=== PATIENT | female | born 1930 | race Caucasian/White ===

== ENCOUNTER 2018-01-26 00:06 | Inpatient (IN) | payer OTHER ==
[~2018-01-26] VITALS: Ht 160 cm; Wt 50.9 kg
[2018-01-26] VITALS (8 sets, daily range): BP systolic 100–182; BP diastolic 70–87
[~2018-01-26 00:06] MED LIST: ASPIRIN325 MG PO; DILANTIN100 MG PO; FLECAINIDE ACE100 MG PO; METOPROLOL SUCC50 MG PO
[2018-01-26] MEDS ORDERED: METAMUCIL POWD174 GM PO (00:21)
[2018-01-26] MEDS ORDERED: MILK OF MA2400 MG/10 PO (00:23)
[2018-01-26] MEDS ORDERED: NITROGLYCERIN0.4 MG SL (00:24)
[2018-01-26] MEDS ORDERED: BENICAR20 MG PO (00:27)
[2018-01-26] MEDS ORDERED: OCUVITE TABLET1 EAC1 PO (00:27)
[2018-01-26] MEDS ORDERED: MAPAP325 MG (00:27)
[2018-01-26 00:28] LABS: BASOPHILS % 0.3 % (0.0-1.0); EOSINOPHILS # (AUTO) 0.4 (0.0-0.4); HEMATOCRIT 31.7 % (34.2-44.1); HEMOGLOBIN 11.1 g/dL (12.0-16.0); LYMPHOCYTES % 17.5 % (18.0-39.1); MEAN CORPUSCULAR HEMOGLOBIN 33.1 pg (28-32); MEAN CORPUSCULAR VOLUME 94.6 fL (81-99); MONOCYTES # (AUTO) 0.8 (0.2-0.8); MONOCYTES % 12.7 % (4.4-11.3); NEUTROPHILS # (AUTO) 3.7 (2.1-6.9); NEUTROPHILS % 62.2 % (38.7-80.0); PLATELET COUNT 203 x10e3/uL (140-360); RED BLOOD COUNT 3.35 x10e6/uL (3.6-5.1); RED CELL DISTRIBUTION WIDTH 12.3 % (11.7-14.4)
[2018-01-26] MEDS ORDERED: STRESS-C WITH1 EAC1 (00:29)
[2018-01-26] MEDS ORDERED: SODIUM CHLORIDE 0.9% 500ML 500 ML IV ONE (00:30)
[2018-01-26] MEDS ORDERED: METOPROLOL TARTRATE INJ 1 MG/ML VIAL IV ONE ×2 (00:30→01:00)
[2018-01-26 00:43] LABS: INR 1.13; PARTIAL THROMBOPLASTIN TIME 26.2 seconds (23.8-35.5); PROTHROMBIN TIME 13.6 seconds (11.9-14.5)
[2018-01-26 00:52] LABS: ALANINE AMINOTRANSFERASE 23 IU/L (0-55); ALBUMIN 3.6 g/dL (3.5-5.0); ALBUMIN/GLOBULIN RATIO 0.8 (0.8-2.0); ALKALINE PHOSPHATASE 151 IU/L (40-150); BLOOD UREA NITROGEN 8 mg/dL (7-26); BUN/CREATININE RATIO 11 (6-25); CALCIUM 8.8 mg/dL (8.4-10.2); CARBON DIOXIDE 21 mmol/L (22-29); CHLORIDE 92 mmol/L (98-107); CREATINE KINASE 39 IU/L (29-168); EST GLOMERULAR FILTRATION RATE > 60 ML/MIN (60-); GLUCOSE 115 mg/dL (74-118); SODIUM 124 mmol/L (136-145)
--- NOTE | 2018-01-26 01:33 | Diagnostic Imaging Report ---
EXAM: CHEST SINGLE (PORTABLE), AP 1 view INDICATION: Not provided COMPARISON: None FINDINGS: LINES/TUBES: None LUNGS: No consolidations or edema. Emphysematous changes with biapical scarring. PLEURA: No effusions or pneumothorax. HEART AND MEDIASTINUM: The heart is at the upper limits of normal in size. Prominence of the right isabel is likely secondary to enlarged pulmonary artery. BONES AND SOFT TISSUES: No acute findings. IMPRESSION: Emphysematous changes without consolidation. Signed by: Dr. Mayuri Sarkar M.D. on 01/26/2018 1:29 AM
[2018-01-26] MEDS ORDERED: ONDANSETRON HCL INJ 2 MG/ML VIAL IV PRN (02:00)
[2018-01-26] MEDS ORDERED: NITROGLYCERIN 0.4 MG SUBL SL PRN (02:00)
[2018-01-26] MEDS: SODIUM CHLORIDE 0.9% 1000ML 1,000 ML IV SCH ×2 (02:09→15:05)
[2018-01-26] MEDS: METOPROLOL TARTRATE INJ 1 MG/ML VIAL IV PRN (05:00)
[2018-01-26 06:32] LABS: CLARITY,URINE HAZY (CLEAR); COLOR,URINE YELLOW (YELLOW); KETONES,URINE NEGATIVE (NEGATIVE); PROTEIN,URINE DIPSTICK NEGATIVE (NEGATIVE)
[2018-01-26 06:33] LABS: BILIRUBIN,URINE NEGATIVE (NEGATIVE); LEUKOCYTE ESTERASE ,URINE 1+ (NEGATIVE); NITRITE,URINE POSITIVE (NEGATIVE); URINE UROBILINOGEN 0.2 mg/dL (0.2 - 1)
[2018-01-26 06:38] LABS: BACTERIA,URINE MANY /HPF; RBC,URINE 0-5 /HPF (0-5); WBC,URINE (MAN) 21-50 /HPF (0-5)
[2018-01-26 06:39] LABS: EPITHELIAL CELLS,URINE RARE /LPF; TRANSITIONAL EPI CELLS,URINE RARE
[2018-01-26] MEDS ORDERED: FAMOTIDINE 20 MG/2 ML VIAL IV SCH (09:00)
[2018-01-26] MEDS: OLMESARTAN 20 MG TAB PO SCH ×2 (09:10→16:55)
[2018-01-26] MEDS: PHENYTOIN SODIUM EXT REL 100 MG CAP PO SCH ×3 (09:10→20:25)
[2018-01-26] MEDS: PSYLLIUM 6GM PACKET PO SCH (09:10)
[2018-01-26] MEDS: ASPIRIN 81 MG CHEW TAB PO SCH (09:10)
[2018-01-26] MEDS: FLECAINIDE ACETATE 100 MG TAB PO SCH ×2 (09:11→20:26)
[2018-01-26] MEDS: OCUVITE PRESERVISION TABLET PO SCH (09:11)
[2018-01-26] MEDS: METOPROLOL SUCCINATE 50 MG TAB XL PO SCH (09:11)
[2018-01-26] MEDS: ENOXAPARIN SODIUM INJ 100 MG/ML SYR SC SCH ×2 (09:14→20:26)
[2018-01-26] MEDS ORDERED: LEVALBUTEROL HCL SOLN NEBU 0.63 MG/3 ML NEB INH PRN (09:30)
[2018-01-26] MEDS: IPRATROPIUM BROMIDE 0.02% 2.5 ML NEB NEB SCH ×3 (09:30→19:00)
[2018-01-26] MEDS ORDERED: BENZONATATE 100 MG CAP PO PRN (09:30)
--- NOTE | 2018-01-26 09:50 | Consultation ---
DATE OF CONSULTATION: January 26, 2018 REASON FOR CONSULTATION: AFib and chest pain. HPI: This is a pleasant 87-year-old female that presented with chest pain. According to the patient, she started having pressure that is located at the center of her chest on a scale of 5 out of 10 with no radiation. She stated it has been going on for the last week, that she decided to come into the emergency room for evaluation. She was found to be in AFib with RVR and she was admitted for further evaluation after getting Cardizem times 2. She has a history of chronic Afib, was taken off anticoagulation by PCP due to multiple falls and bleeding. She denies any diaphoresis, any headache, any nausea or vomiting. BNP showed 295. Chest x-ray showed emphysema changes without consolidation. PAST MEDICAL HISTORY: Hypertension, osteoporosis, fall, AFib, and seizure disorder. PAST SURGICAL HISTORY: Left wrist surgery, hysterectomy, status post hip surgery. FAMILY HISTORY: Noncontributory. SOCIAL HISTORY: No smoking. No drinking. She lives at home with her . MEDICATIONS: See med list. ALLERGIES: SHE IS ALLERGIC TO SHELLFISH, PENICILLIN, MEPERIDINE, AND IRON. REVIEW OF SYSTEMS: Negative except as mentioned above. PHYSICAL EXAMINATION VITALS: Temperature 97, heart rate 92, blood pressure 127/73, respirations 18, and oxygen saturation 98% on 2 L nasal cannula. GENERAL: She is awake, alert, and oriented times 3. HEENT: Mucous membrane moist. NECK: Supple. Lungs bilaterally clear to auscultation. CARDIOVASCULAR: Irregularly irregular. ABDOMEN: Soft. NEUROLOGIC: Intact. EXTREMITIES: With no edema. LABS: Sodium 124, potassium 4.0, chloride 92, CO2 of 21, BUN 8, creatinine 0.70, and glucose 115. White blood cell 5.89, hemoglobin 11.1, hematocrit 31.7, and platelets 203,000. PT 13.6, PTT 26.2, and INR 1.13. IMPRESSIONS 1. Atrial fibrillation with rapid ventricular response. 2. Chest pain. 3. Hyponatremia. 4. Hypertension. 5. History of seizure. ASSESSMENT AND PLAN: Will go ahead and get serial cardiac enzymes. She has multiple echos in the past. Will go ahead and get report from [facility]. Possible Lexiscan Myoview when stable or as an outpatient. She was taken off anticoagulation in the past due to history of fall and bleeding. Will go ahead and continue Lovenox for now. Her heart rate is controlled and fluctuates in the 90s to 100s. Further cardiac workup pending clinical course. Thank you for this consultation. Dictated by Amarjit Benavidez NP Job#: [id number] CF
[2018-01-26] MEDS ORDERED: AZITHROMYCIN 250 MG TAB PO ONE (10:00)
[2018-01-26] MEDS: CEFTRIAXONE SOD 1 GM VIAL IV SCH ×2 (10:40→20:26)
[2018-01-26] MEDS: LORATADINE 10 MG TAB PO SCH (10:40)
[2018-01-26] MEDS: METHYLPREDNISOLONE SOD SUCC 40 MG/ML VIAL IV SCH ×3 (10:41→20:26)
[2018-01-26 14:05] LABS: CREATINE KINASE MB 2.2 ng/mL (0-5.0)
[2018-01-26] MEDS: BENZONATATE 100 MG CAP PO SCH ×2 (15:00→20:26)
--- NOTE | 2018-01-26 15:17 | Diagnostic Imaging Report ---
PROCEDURE: CT CHEST WITHOUT CONTRAST CT scan of the chest WITHOUT intravenous contrast, using standard protocol. TECHNIQUE: The chest was scanned utilizing a multidetector helical scanner from the apex to the level of the adrenal glands. No IV contrast was administered per physician's request. Coronal and sagittal multiplanar reformations were obtained. COMPARISON: [facility], DX, CHEST SINGLE (PORTABLE), 01/26/2018, 0:47. INDICATIONS: SHORT OF BREATH FINDINGS: Lines/tubes: None. Lungs and Airways: Mild apical pleural parenchymal scarring. Linear opacities in bilateral posteromedial lower lobes likely represents subsegmental atelectasis or scarring. Mild central bronchial wall thickening in the upper and lower lobes. No pulmonary nodules, masses, or consolidation. Airways are clear, without endobronchial lesions. Pleura: No effusion, or pneumothorax. Heart and mediastinum: Multiple hypodense lesions in bilateral thyroid lobes, with the largest on the right measuring approximately 1.0 cm and the largest on the left measuring approximately 1.3 cm. Some of these bilateral hypodense lesions are partly calcified. Mild cardiomegaly. Atherosclerotic calcification of the aortic valves, mitral annulus and thoracic aorta. Aorta is non-aneurysmal. The main pulmonary artery is enlarged, measuring approximately 3.4 cm. Lymph nodes: No mediastinal or axillary adenopathy. Calcified right lower paratracheal and right hilar nodes. Abdomen: Limited views of the upper abdomen show no abnormality within the visualized liver, pancreas, or kidneys. Right adrenal gland is unremarkable. Left adrenal gland is thickened, however, no discrete focal lesion is identified. Multiple calcified splenic granulomas. 0.6 cm round nodular density anterior to the descending colon may likely represents a splenule (series 2 image 121). Tortuous calcified splenic artery. 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 Bones: No acute bony abnormalities. No aggressive lytic lesions. Degenerative disc changes in the thoracic spine. IMPRESSION: 1. No pulmonary nodules, masses, or consolidation. Bilateral lower lobe subsegmental atelectasis or scarring. 2. Mild central bronchial wall thickening in the upper and lower lobes, which may reflect sequela of chronic bronchitis. 3. Mild cardiomegaly. 4. Enlarged main pulmonary artery, suggesting pulmonary hypertension. 5. Prior granulomatous disease, manifested by calcified mediastinal and hilar nodes and splenic granulomas. 6. 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 Fran Jarquin M.D. Dictated by: Fran Jarquin M.D. on 01/26/2018 at 15:23 Electronically approved by: Fran Jarquin M.D. on 01/26/2018 at 15:23
[2018-01-26 21:08] LABS: CREATINE KINASE MB 1.9 ng/mL (0-5.0)
[2018-01-27] VITALS (8 sets, daily range): BP systolic 123–140; BP diastolic 69–87
[2018-01-27] MEDS: IPRATROPIUM BROMIDE 0.02% 2.5 ML NEB NEB SCH ×4 (01:00→19:00)
[2018-01-27 04:54] LABS: BASOPHILS % 0.3 % (0.0-1.0); EOSINOPHILS % 0.5 % (0.0-6.0); HEMATOCRIT 30.5 % (34.2-44.1); HEMOGLOBIN 10.5 g/dL (12.0-16.0); LYMPHOCYTES % 16.8 % (18.0-39.1); MEAN CORPUSCULAR HEMOGLOBIN 33.2 pg (28-32); MEAN CORPUSCULAR HGB CONC 34.4 g/dL (31-35); MEAN CORPUSCULAR VOLUME 96.5 fL (81-99); MONOCYTES # (AUTO) 0.5 (0.2-0.8); NEUTROPHILS # (AUTO) 4.5 (2.1-6.9); NEUTROPHILS % 73.9 % (38.7-80.0); PLATELET COUNT 215 x10e3/uL (140-360); RED BLOOD COUNT 3.16 x10e6/uL (3.6-5.1); RED CELL DISTRIBUTION WIDTH 12.4 % (11.7-14.4)
[2018-01-27] MEDS: SODIUM CHLORIDE 0.9% 1000ML 1,000 ML IV SCH (05:04)
[2018-01-27] MEDS: METHYLPREDNISOLONE SOD SUCC 40 MG/ML VIAL IV SCH ×2 (05:04→20:25)
[2018-01-27 05:12] LABS: ALANINE AMINOTRANSFERASE 21 IU/L (0-55); ALBUMIN 2.7 g/dL (3.5-5.0); ALBUMIN/GLOBULIN RATIO 0.7 (0.8-2.0); ALKALINE PHOSPHATASE 108 IU/L (40-150); ANION GAP 11.4 mmol/L (8-16); BLOOD UREA NITROGEN 10 mg/dL (7-26); BUN/CREATININE RATIO 15 (6-25); CALCIUM 8.3 mg/dL (8.4-10.2); CARBON DIOXIDE 22 mmol/L (22-29); CHLORIDE 102 mmol/L (98-107); CHOL/HDL RATIO 2.1 (3.0-3.6); CHOLESTEROL 174 MD/DL (0-199); CREATININE, SERUM 0.65 mg/dL (0.57-1.11); EST GLOMERULAR FILTRATION RATE > 60 ML/MIN (60-); GLUCOSE 108 mg/dL (74-118); HDL CHOLESTEROL 81 MG/DL (40-60); LDL CHOLESTEROL 80 MG/DL (60-130); POTASSIUM 4.4 mmol/L (3.5-5.1); SODIUM 131 mmol/L (136-145); TRIGLYCERIDES 67 MG/DL (0-149)
[2018-01-27] MEDS: BENZONATATE 100 MG CAP PO SCH ×3 (09:53→20:26)
[2018-01-27] MEDS: ENOXAPARIN SODIUM INJ 100 MG/ML SYR SC SCH ×2 (09:53→20:28)
[2018-01-27] MEDS: OCUVITE PRESERVISION TABLET PO SCH (09:53)
[2018-01-27] MEDS: OLMESARTAN 20 MG TAB PO SCH ×2 (09:53→17:08)
[2018-01-27] MEDS: AZITHROMYCIN 250 MG TAB PO SCH (09:53)
[2018-01-27] MEDS: LORATADINE 10 MG TAB PO SCH (09:53)
[2018-01-27] MEDS: PSYLLIUM 6GM PACKET PO SCH (09:53)
[2018-01-27] MEDS: METOPROLOL SUCCINATE 50 MG TAB XL PO SCH ×2 (09:53→17:09)
[2018-01-27] MEDS: FLECAINIDE ACETATE 100 MG TAB PO SCH ×2 (09:53→20:26)
[2018-01-27] MEDS: ASPIRIN 81 MG CHEW TAB PO SCH (09:53)
[2018-01-27] MEDS: PHENYTOIN SODIUM EXT REL 100 MG CAP PO SCH ×3 (09:53→20:26)
[2018-01-27] MEDS: CEFTRIAXONE SOD 1 GM VIAL IV SCH ×2 (09:54→20:32)
--- NOTE | 2018-01-27 15:43 | History and Physical ---
CHIEF COMPLAINT: Cough, congestion and elevated heart rate. HISTORY OF PRESENT ILLNESS: An 87-year-old female with known history of AFib, hypertension, seizure disorder comes into the ED with complaints of chest pain and underlying cough and congestion. Patient was admitted for further evaluation. In relation to her AFib, cardiology was consulted. She reports that her chest pain was in the center of her chest, 5 out of 10 with no radiation. She stated that it lasted for about the last one week. She had come to the ER for further evaluation. She was also found to be in AFib with RVR for which she came to the ER and was given Cardizem. In relation to her cough and congestion, this has been ongoing for several days now. No fever at home. No congestion. No abdominal pain or any other complaints. Creatinine to evaluate at bedside on the medical floor and currently doing well with no other issues. REVIEW OF SYSTEMS: Pertinent positive: Cough. Chest pain. Pertinent negative: Denies any palpitations, nausea, vomiting, diarrhea, dysuria, hematuria, frequency, urgency, lightheadedness, dizziness, abdominal pain, headache, shortness of breath, congestion or any other issues. A 14-point review of systems have been reviewed and are negative. ALLERGIES: PENICILLIN, SHELLFISH, OYSTERS, IRON, MEPERIDINE , OYSTER EXTRACT, SHELLFISH DERIVATIVE. HOME MEDICATIONS: Flecainide 100 mg every 12 hours, metoprolol succinate ER 50 mg daily, Benicar 20 mg b.i.d., phenytoin 100 mg p.o. t.i.d. and aspirin 325 mg daily. PAST MEDICAL HISTORY: She has a history of hypertension, osteoporosis, multiple falls, atrial fibrillation, seizure disorder. PAST SURGICAL HISTORY: Left wrist surgery, hysterectomy, status post hip surgery. FAMILY HISTORY: Hypertension and diarrhea. SOCIAL HISTORY: No smoking, no drugs. Lives with her family. No alcohol. LABORATORY DATA: Lab findings is white count is 6.1, hemoglobin 10.5, hematocrit 31, platelets of 215.000. Coagulation: PT 13.6, INR 1.1, PTT 26. Chemistry: Sodium 131, potassium 4.4, chloride 102, bicarb 22, anion gap of 11. BUN is 10, creatinine 0.65. Glucose is 108. AST 18, ALT 21. Albumin is 2.7. LDL is 80. Urinalysis with 21 to 50 WBCs, many bacteria, positive nitrites. Digoxin level less than 0.30. MICROBIOLOGY: None. IMAGING STUDIES: Chest x-ray shows emphysematous changes without any consolidation. CT chest shows no pulmonary nodules, masses or consolidation. Bilateral lower lobe subsegmental atelectasis and scarring. There is chronic bronchitis seen. PHYSICAL EXAM: VITAL SIGNS: Temperature is 96.8, pulse 102, respiratory rate 17, blood pressure 136/69, pulse oximetry 100% on room air. GENERAL: Not in acute distress, alert and oriented x3, cooperative on examination. HEENT: Head normocephalic, atraumatic. Eyes: Pupils equal, round and reactive to light bilaterally. Extraocular movements intact bilaterally. NECK: Supple with good range of motion. Throat with no evidence of any erythema or exudates in the posterior pharynx. Has poor dentition. PULMONARY: Clear to auscultation bilaterally. No wheezing, no rales, no rhonchi and no crackles appreciated. CARDIOVASCULAR: Positive S1 and S2. No murmurs, rubs or gallops. ABDOMEN: Soft, nondistended, nontender to palpation. Bowel sounds present. MUSCULOSKELETAL: Strength is 5/5 throughout. No evidence of any musculoskeletal deficit. No weakness appreciated. NEUROLOGIC: Cranial nerves II-XII grossly intact. No evidence of any neurologic deficit on exam. SKIN: Intact. Warm to tough. Good capillary refill. PSYCHIATRIC: Normal affect. EXTREMITIES: No edema. Good range of motion throughout. IMPRESSION 1. Atrial fibrillation with rapid ventricular response. 2. Chest pain likely atypical due to the atrial fibrillation. 3. Acute bronchitis. 4. Cough, congestion with wheezing. 5. Allergic rhinitis. PLAN: At this time cardiology is consulted. She is on rate control medications. She is also on anticoagulation as per cardiology. Will continue with IV antibiotics. Robitussin with codeine 10 mL every 6 hours as needed for cough. Remove oxygen. Discontinue IV fluids. Encourage ambulation. She will be on a regular diet. Job#: [id number]
[2018-01-27] MEDS: GUAIFENESIN/CODEINE 10 ML CUP PO PRN (15:58)
[2018-01-28] VITALS (8 sets, daily range): BP systolic 123–159; BP diastolic 93–98
[2018-01-28] MEDS: IPRATROPIUM BROMIDE 0.02% 2.5 ML NEB NEB SCH ×4 (01:00→19:00)
[2018-01-28] MEDS: GUAIFENESIN/CODEINE 10 ML CUP PO PRN ×3 (04:12→22:38)
[2018-01-28] MEDS: METOPROLOL TARTRATE INJ 1 MG/ML VIAL IV PRN (05:21)
[2018-01-28] MEDS: METHYLPREDNISOLONE SOD SUCC 40 MG/ML VIAL IV SCH ×2 (08:00→20:28)
[2018-01-28] MEDS: ASPIRIN 81 MG CHEW TAB PO SCH (08:00)
[2018-01-28] MEDS: LORATADINE 10 MG TAB PO SCH (08:00)
[2018-01-28] MEDS: PSYLLIUM 6GM PACKET PO SCH (08:00)
[2018-01-28] MEDS: PHENYTOIN SODIUM EXT REL 100 MG CAP PO SCH ×3 (08:00→20:27)
[2018-01-28] MEDS: OCUVITE PRESERVISION TABLET PO SCH (08:00)
[2018-01-28] MEDS: FLECAINIDE ACETATE 100 MG TAB PO SCH ×2 (08:00→20:27)
[2018-01-28] MEDS: OLMESARTAN 20 MG TAB PO SCH ×2 (08:00→16:13)
[2018-01-28] MEDS: BENZONATATE 100 MG CAP PO SCH ×3 (08:00→20:27)
[2018-01-28] MEDS: CEFTRIAXONE SOD 1 GM VIAL IV SCH ×2 (08:01→20:35)
[2018-01-28] MEDS: METOPROLOL SUCCINATE 50 MG TAB XL PO SCH ×2 (08:01→16:13)
[2018-01-28] MEDS: AZITHROMYCIN 250 MG TAB PO SCH (08:01)
[2018-01-28] MEDS: ENOXAPARIN SODIUM INJ 100 MG/ML SYR SC SCH ×2 (08:01→20:29)
--- NOTE | 2018-01-28 19:59 | Progress Note ---
DATE: January 28, 2018 SUBJECTIVE: Patient is off of oxygen now. She is breathing much better. She does have some decreased breath sounds bilaterally, but she has improved tremendously. Her cough has improved as well with Robitussin with codeine. OBJECTIVE VITAL SIGNS: Temperature is 96.1, pulse is still 112, respiratory rate 18, blood pressure 123/97, pulse ox 96% on room air. GENERAL: Not in acute distress. Alert and oriented times 3. Cooperative on examination. HEENT: Head is normocephalic and atraumatic. Eyes: Pupils equal, round and reactive to light bilaterally. Extraocular movements intact bilaterally. NECK: Supple. Good range of motion. Throat with no evidence of any erythema or exudates in the posterior pharynx. Has poor dentition. PULMONARY: Decreased breath sounds bilaterally. Had some expiratory wheezing appreciated. No crackles. No rales. No rhonchi. CARDIOVASCULAR: Positive S1 and S2. No murmurs, rubs or gallops appreciated. ABDOMEN: Soft, nondistended and nontender to palpation. Bowel sounds present. MUSCULOSKELETAL: Strength is 5/5 throughout. No evidence of any muscle deficit on examination. No weakness appreciated. NEUROLOGICAL: Cranial nerves II-XII are grossly intact. No evidence of any neurological deficit on examination. SKIN: Intact. Warm to touch. Good cap refill. PSYCHIATRIC: Normal affect and mood. EXTREMITIES: No edema. Good range of motion throughout. LAB FINDINGS: None. IMAGING STUDIES: None. MICROBIOLOGY: None. IMPRESSION 1. Atrial fibrillation with rapid ventricular response: Rate is still elevated. 2. Chest pain, likely atypical in nature. 3. Acute bronchitis. 4. Cough, congestion and wheezing. 5. Allergic rhinitis. 6. Acute exacerbation of chronic obstructive pulmonary disease. PLAN: At this time, she is off of oxygen. She does still have some expiratory wheezing on exam. Will continue with IV antibiotics for now. Continue with Robitussin with codeine. In relation to her AFib, cardiology has been consulted. She still likely will need another 1-2 more days. I am going to evaluate for home O2 needs as well. We are going to continue her on her regular diet. Her glucose levels are stable. Electrolytes are stable. Will continue to follow. Job#: [id number] LUIS MIGUEL
[2018-01-29] VITALS (8 sets, daily range): BP systolic 135–154; BP diastolic 72–105
[2018-01-29] MEDS: IPRATROPIUM BROMIDE 0.02% 2.5 ML NEB NEB SCH ×4 (01:00→19:00)
[2018-01-29 04:39] LABS: BASOPHILS % 0.5 % (0.0-1.0); EOSINOPHILS # (AUTO) 0.1 (0.0-0.4); EOSINOPHILS % 1.2 % (0.0-6.0); HEMATOCRIT 34.1 % (34.2-44.1); HEMOGLOBIN 11.5 g/dL (12.0-16.0); LYMPHOCYTES # (AUTO) 1.2 (1.0-3.2); LYMPHOCYTES % 20.3 % (18.0-39.1); MEAN CORPUSCULAR HEMOGLOBIN 32.7 pg (28-32); MEAN CORPUSCULAR HGB CONC 33.7 g/dL (31-35); MEAN CORPUSCULAR VOLUME 96.9 fL (81-99); MONOCYTES # (AUTO) 0.5 (0.2-0.8); MONOCYTES % 7.7 % (4.4-11.3); NEUTROPHILS # (AUTO) 4.2 (2.1-6.9); PLATELET COUNT 258 x10e3/uL (140-360); RED BLOOD COUNT 3.52 x10e6/uL (3.6-5.1); RED CELL DISTRIBUTION WIDTH 12.5 % (11.7-14.4)
[2018-01-29 04:56] LABS: ANION GAP 14.1 mmol/L (8-16); BLOOD UREA NITROGEN 9 mg/dL (7-26); BUN/CREATININE RATIO 14 (6-25); CALCIUM 8.4 mg/dL (8.4-10.2); CARBON DIOXIDE 24 mmol/L (22-29); CHLORIDE 96 mmol/L (98-107); CREATININE, SERUM 0.63 mg/dL (0.57-1.11); EST GLOMERULAR FILTRATION RATE > 60 ML/MIN (60-); GLUCOSE 105 mg/dL (74-118); POTASSIUM 4.1 mmol/L (3.5-5.1); SODIUM 130 mmol/L (136-145)
[2018-01-29] MEDS: OLMESARTAN 20 MG TAB PO SCH ×2 (08:40→16:28)
[2018-01-29] MEDS: METOPROLOL SUCCINATE 50 MG TAB XL PO SCH ×2 (08:40→16:48)
[2018-01-29] MEDS: FLECAINIDE ACETATE 100 MG TAB PO SCH ×2 (08:40→21:06)
[2018-01-29] MEDS: CEFTRIAXONE SOD 1 GM VIAL IV SCH ×2 (08:40→21:04)
[2018-01-29] MEDS: PSYLLIUM 6GM PACKET PO SCH (08:40)
[2018-01-29] MEDS: PHENYTOIN SODIUM EXT REL 100 MG CAP PO SCH ×3 (08:40→21:04)
[2018-01-29] MEDS: ENOXAPARIN SODIUM INJ 100 MG/ML SYR SC SCH ×2 (08:40→21:04)
[2018-01-29] MEDS: ASPIRIN 81 MG CHEW TAB PO SCH (08:40)
[2018-01-29] MEDS: AZITHROMYCIN 250 MG TAB PO SCH (08:40)
[2018-01-29] MEDS: METHYLPREDNISOLONE SOD SUCC 40 MG/ML VIAL IV SCH ×2 (08:40→21:04)
[2018-01-29] MEDS: BENZONATATE 100 MG CAP PO SCH ×3 (08:40→21:04)
[2018-01-29] MEDS: OCUVITE PRESERVISION TABLET PO SCH (08:40)
[2018-01-29] MEDS: LORATADINE 10 MG TAB PO SCH (08:40)
--- NOTE | 2018-01-29 18:57 | Progress Note ---
DATE: January 29, 2018 I am covering for Dr. Rowan. SUBJECTIVE: Patient is off of oxygen. She does not qualify for any home O2. Her breathing sounds really well today. Heart rate is still elevated in the 120s. I will adjust her beta-blockers. OBJECTIVE VITAL SIGNS: Temperature is 96.1, pulse is 123, respiratory rate is 19, blood pressure 143/72, pulse ox 95% on room air. GENERAL: Not in acute distress. Alert and oriented times 3. Cooperative on examination. HEENT: Head is normocephalic and atraumatic. Eyes: Pupils equal, round and reactive to light bilaterally. Extraocular movements intact bilaterally. NECK: Supple. Good range of motion. Throat, no evidence of any erythema or exudates in the posterior pharynx. Has poor dentition. PULMONARY: Clear to auscultation bilaterally. No wheezing. No rales. No rhonchi. No crackles appreciated. CARDIOVASCULAR: Positive S1 and S2. No murmurs, rubs or gallops appreciated. Irregularly irregular heart rhythm. SKIN: Intact. Warm to touch. Good cap refill. PSYCHIATRIC: Normal affect and mood. EXTREMITIES: No edema. Good range of motion throughout. LAB FINDINGS: Show white count 5.9, hemoglobin 11.5, hematocrit 34, platelets of 258. Chemistry: Sodium 130, potassium 4.1, chloride 96, bicarb 24, anion gap of 14, BUN is 9, creatinine is 0.6, glucose is 105, calcium 8.4. MICROBIOLOGY: None. IMAGING STUDIES: None. IMPRESSION 1. Atrial fibrillation with rapid ventricular response--rate is still elevated. 2. Atypical chest pain. 3. Acute bronchitis. 4. Cough, congestion, and wheezing. 5. Allergic rhinitis. 6. Acute exacerbation of chronic obstructive pulmonary disease. PLAN: At this time, she does not qualify for any home O2 even on exertion. I will continue with IV antibiotics for now. Continue Robitussin with codeine. Her heart rate is still elevated with no one adjusted her heart rate medications and which I will adjust them myself, add metoprolol XL at 100 mg p.o. b.i.d. because she is currently at 75 b.i.d. We will determine to see if this will improve her heart rate. In terms of her anticoagulation, it still has not been converted to oral. This will be cardiology responsibility. We will continue with regular diet. We will await final recommendations by cardiology. Otherwise, medically she is cleared to be discharge, but her heart rate is still elevated requiring another day and also needing recommendations on anticoagulation orally. Job#: [id number] VAS
[2018-01-30] VITALS (9 sets, daily range): BP systolic 125–148; BP diastolic 66–86
[2018-01-30] MEDS: IPRATROPIUM BROMIDE 0.02% 2.5 ML NEB NEB SCH ×4 (01:00→19:00)
[2018-01-30] MEDS: CEFTRIAXONE SOD 1 GM VIAL IV SCH ×2 (09:09→21:17)
[2018-01-30] MEDS: OLMESARTAN 20 MG TAB PO SCH ×2 (09:09→17:10)
[2018-01-30] MEDS: ASPIRIN 81 MG CHEW TAB PO SCH (09:09)
[2018-01-30] MEDS: PSYLLIUM 6GM PACKET PO SCH (09:09)
[2018-01-30] MEDS: BENZONATATE 100 MG CAP PO SCH ×3 (09:09→21:21)
[2018-01-30] MEDS: METHYLPREDNISOLONE SOD SUCC 40 MG/ML VIAL IV SCH ×2 (09:09→21:20)
[2018-01-30] MEDS: PHENYTOIN SODIUM EXT REL 100 MG CAP PO SCH ×3 (09:09→21:20)
[2018-01-30] MEDS: FLECAINIDE ACETATE 100 MG TAB PO SCH ×2 (09:09→21:21)
[2018-01-30] MEDS: LORATADINE 10 MG TAB PO SCH (09:09)
[2018-01-30] MEDS: OCUVITE PRESERVISION TABLET PO SCH (09:09)
[2018-01-30] MEDS: METOPROLOL SUCCINATE 50 MG TAB XL PO SCH ×2 (09:10→17:11)
[2018-01-30] MEDS: ENOXAPARIN SODIUM INJ 100 MG/ML SYR SC SCH ×2 (09:10→21:17)
[2018-01-30] MEDS: AZITHROMYCIN 250 MG TAB PO SCH (09:10)
[2018-01-30] MEDS ORDERED: DIGOXIN INJ 0.25 MG/ML 2 ML AMP IV NR (09:15)
[2018-01-31] VITALS: BP 154/72
[2018-01-31] MEDS: IPRATROPIUM BROMIDE 0.02% 2.5 ML NEB NEB SCH ×3 (01:00→13:00)
[2018-01-31 04:00] VITALS: BP 127/79
[2018-01-31 08:00] VITALS: BP 152/65
[2018-01-31] MEDS: METOPROLOL SUCCINATE 50 MG TAB XL PO SCH (08:25)
[2018-01-31] MEDS: OLMESARTAN 20 MG TAB PO SCH (08:25)
[2018-01-31] MEDS: FLECAINIDE ACETATE 100 MG TAB PO SCH (08:25)
[2018-01-31] MEDS: BENZONATATE 100 MG CAP PO SCH (08:25)
[2018-01-31] MEDS: PHENYTOIN SODIUM EXT REL 100 MG CAP PO SCH (08:25)
[2018-01-31] MEDS: LORATADINE 10 MG TAB PO SCH (08:25)
[2018-01-31] MEDS: PSYLLIUM 6GM PACKET PO SCH (08:25)
[2018-01-31] MEDS: OCUVITE PRESERVISION TABLET PO SCH (08:25)
[2018-01-31] MEDS ORDERED: ASPIRIN 325 MG TAB PO SCH (09:00)
[2018-01-31] MEDS ORDERED: DIGOXIN 0.125 MG TAB PO SCH (09:00)
[2018-01-31] MEDS ORDERED: METOPROLOL TART50 MG PO (10:41)
[2018-01-31] MEDS ORDERED: DIGOXIN125 MCG PO (10:41)
[2018-01-31] MEDS ORDERED: TESSALON PERLE100 MG PO (10:42)
[2018-01-31] MEDS ORDERED: LORATADINE10 MG PO (10:42)
[2018-01-31] MEDS ORDERED: XOPENEX HFA15 GM IH (10:43)
[2018-01-31 12:00] VITALS: BP 144/93
[2018-01-31 12:42] VITALS: BP 152/68
--- NOTE | 2018-01-31 13:20 | Discharge Summary ---
PCP: Dr. Carlos Lazar. BRANCH LENDING OFFICER: Dr. Kit Mcleod. FINAL DIAGNOSES 1. Atrial fibrillation with rapid ventricular rate response, rate controlled now. 2. Allergic rhinitis. 3. Cough and wheezing secondary to respiratory symptoms, resolved. SUMMARY: 87-year-old female with atrial fibrillation with rapid ventricular rate response. The patient only wants to take aspirin. She refused any anticoagulant therapy. She is stable now, heart rate in the 66. Digoxin initiated. In addition to that, her metoprolol has increased to 100 mg twice a day instead of 50 mg once a day. She also is getting Tessalon Perles and Claritin for her allergic rhinitis. She is doing much better now. She is stable. DISCHARGE MEDICATIONS: As follows. 1. Would resume home medication. 2. Xopenex HFA p.r.n. 3. Digoxin 0.125 mg every other day. 4. Metoprolol tartrate 100 mg twice a day. 5. Tessalon Perles 100 mg q.6 p.r.n. for cough. 6. Claritin 10 mg daily. Patient is stable. Discharge home today. Advise the patient to follow up with Dr. Mcleod next week. Continue with home medication including aspirin 325 mg daily. Atrial fibrillation, the patient refused anticoagulant therapy. The patient is otherwise stable at this time. Discharge home today. Job#: [id number] ALIYAH
== END 2018-01-31 15:44 | disposition home or self-care (01) | DRG 309 ==
LOC: ER 00:06 → ERHOLD 01:53 → MED/SURG2 03:09
PROVIDERS: ADMIT Internal Medicine; ATTEND Internal Medicine
DX: I48.2 Chronic atrial fibrillation (principal); J44.1 Chronic obstructive pulmonary disease with (acute) exacerbation; J45.901 Unspecified asthma with (acute) exacerbation; E87.1 Hypo-osmolality and hyponatremia; J20.9 Acute bronchitis, unspecified; J30.9 Allergic rhinitis, unspecified; E87.6 Hypokalemia; G40.909 Epilepsy, unspecified, not intractable, without status epilepticus
CPT/HCPCS: 36415; 71045; 71250; 80048; 80053; 80061; 80162; 81001; 82550; 82553; 83880; 84484; 85025; 85610; 85730; 93005; 94640; 99284; J0696; J1160; J1650; J2920; J7030; J7040

== ENCOUNTER 2018-03-19 06:36 | Emergency (ER) | payer OTHER ==
[~2018-03-19] VITALS: Ht 160 cm; Wt 47.2 kg
[~2018-03-19 06:36] MED LIST changes: +BENICAR20 MG PO; +DIGOXIN125 MCG PO; +LORATADINE10 MG PO; +MAPAP325 MG; +METAMUCIL POWD174 GM PO; +METOPROLOL TART50 MG PO; +MILK OF MA2400 MG/10 PO; +NITROGLYCERIN0.4 MG SL; +OCUVITE TABLET1 EAC1 PO; +STRESS-C WITH1 EAC1; +TESSALON PERLE100 MG PO; +XOPENEX HFA15 GM IH
[2018-03-19 07:16] LABS: BASOPHILS % 0.7 % (0.0-1.0); EOSINOPHILS # (AUTO) 0.4 (0.0-0.4); EOSINOPHILS % 7.3 % (0.0-6.0); HEMOGLOBIN 11.1 g/dL (12.0-16.0); LYMPHOCYTES # (AUTO) 1.1 (1.0-3.2); LYMPHOCYTES % 17.8 % (18.0-39.1); MEAN CORPUSCULAR HEMOGLOBIN 32.2 pg (28-32); MEAN CORPUSCULAR HGB CONC 33.6 g/dL (31-35); MEAN CORPUSCULAR VOLUME 95.7 fL (81-99); MONOCYTES # (AUTO) 0.6 (0.2-0.8); MONOCYTES % 10.3 % (4.4-11.3); NEUTROPHILS # (AUTO) 3.8 (2.1-6.9); NEUTROPHILS % 63.6 % (38.7-80.0); PLATELET COUNT 265 x10e3/uL (140-360); RED BLOOD COUNT 3.45 x10e6/uL (3.6-5.1); RED CELL DISTRIBUTION WIDTH 13.2 % (11.7-14.4)
[2018-03-19 07:25] LABS: INR 1.05; PROTHROMBIN TIME 14.7 seconds (11.9-14.5)
[2018-03-19 07:31] LABS: ALANINE AMINOTRANSFERASE 41 IU/L (0-55); ALBUMIN 3.5 g/dL (3.5-5.0); ALBUMIN/GLOBULIN RATIO 0.7 (0.8-2.0); ALKALINE PHOSPHATASE 177 IU/L (40-150); ANION GAP 15.3 mmol/L (8-16); BLOOD UREA NITROGEN 19 mg/dL (7-26); BUN/CREATININE RATIO 22 (6-25); CARBON DIOXIDE 24 mmol/L (22-29); CHLORIDE 94 mmol/L (98-107); CREATINE KINASE 24 IU/L (29-168); CREATININE, SERUM 0.85 mg/dL (0.57-1.11); EST GLOMERULAR FILTRATION RATE > 60 ML/MIN (60-); GLUCOSE 98 mg/dL (74-118); MAGNESIUM 2.4 MG/DL (1.3-2.1); POTASSIUM 4.3 mmol/L (3.5-5.1); SODIUM 129 mmol/L (136-145)
--- NOTE | 2018-03-19 07:46 | Diagnostic Imaging Report ---
EXAMINATION: CHEST SINGLE (PORTABLE) INDICATION: \S\SOB AFIB COMPARISON: CT chest 01/26/2018. Chest x-ray 01/26/2018 FINDINGS: AP view TUBES and LINES: None. LUNGS: Lungs are hyper inflated. There is mild prominence of the central pulmonary vasculature, consistent with pulmonary venous congestion. PLEURA: No pleural effusion or pneumothorax. HEART AND MEDIASTINUM: Cardiac size is mildly enlarged. There are atherosclerotic calcifications within the aorta. BONES AND SOFT TISSUES: No acute osseous lesion. Soft tissues are unremarkable. UPPER ABDOMEN: No free air under the diaphragm. IMPRESSION: Unchanged emphysema with mild central pulmonary venous congestion. Signed by: Dr. Primitivo Ramsey M.D. on 03/19/2018 7:43 AM
[2018-03-19 08:23] LABS: BILIRUBIN,URINE NEGATIVE (NEGATIVE); CLARITY,URINE CLEAR (CLEAR); COLOR,URINE YELLOW (YELLOW); KETONES,URINE NEGATIVE (NEGATIVE); LEUKOCYTE ESTERASE ,URINE NEGATIVE (NEGATIVE); NITRITE,URINE NEGATIVE (NEGATIVE); PROTEIN,URINE DIPSTICK NEGATIVE (NEGATIVE); URINE UROBILINOGEN 0.2 mg/dL (0.2 - 1)
[2018-03-19 08:28] LABS: BACTERIA,URINE RARE /HPF; EPITHELIAL CELLS,URINE FEW /LPF; TRANSITIONAL EPI CELLS,URINE FEW
[2018-03-19] MEDS ORDERED: DIGOXIN INJ 0.25 MG/ML 2 ML AMP IV ONE (09:00)
[2018-03-19] MEDS ORDERED: FUROSEMIDE INJ 10 MG/ML 4 ML VIAL IV ONE (09:00)
[2018-03-19 09:39] VITALS: BP 139/79
== END 2018-03-19 09:50 | disposition home or self-care (01) ==
LOC: ER 06:36
DX: R06.00 Dyspnea, unspecified (principal); J20.8 Acute bronchitis due to other specified organisms; I50.1 Left ventricular failure, unspecified
CPT/HCPCS: 36415; 71045; 80053; 80162; 81001; 82550; 82553; 83605; 83735; 83880; 84484; 85025; 85610; 85730; 87040; 87086; 93005; 99284; J1160; J1940

== ENCOUNTER 2018-03-30 06:38 | Observation (INO) | payer OTHER ==
[~2018-03-30] VITALS: Ht 160 cm; Wt 47.2 kg
--- NOTE | 2018-03-30 07:29 | Diagnostic Imaging Report ---
Exam: Head CT without contrast History: Near syncope, Comparison studies: None Technique: Axial images were obtained from the skull base to the vertex. Coronal and sagittal images reconstructed from the axial data. Dose modulation, iterative reconstruction, and/or weight based adjustment of the mA/kV was utilized to reduce the radiation dose to as low as reasonably achievable. Radiation dose: Total DLP: 921 mGy*cm. Estimated effective dose: DLP x 0.015 Intravenous contrast: None Findings: Scalp: No abnormalities. Bones: No fractures, blastic or lytic lesions. Brain sulci: Mildly prominent. Ventricles: Moderate compensatory dilatation. No hydrocephalus. Extra-axial spaces: No masses, no fluid collection. Parenchyma: No mass, acute hemorrhage or acute or chronic cortical vascular insults. A few scattered hypodensities in the supratentorial white matter are nonspecific but most compatible with chronic microvascular ischemic changes. Sellar/suprasellar region: Incidental mostly CSF filled sella, a nonspecific finding. Craniocervical junction: Patent foramen magnum. No Chiari one malformation. Incidental findings: Atherosclerotic calcifications in the carotid siphons. IMPRESSION: No acute abnormalities. Chronic findings: 1. Mild to moderate generalized volume loss. 2. Mild chronic microvascular ischemic changes. Signed by: Dr. Dean Musa M.D. on 03/30/2018 7:26 AM
--- NOTE | 2018-03-30 07:48 | Diagnostic Imaging Report ---
draft EXAMINATION: CHEST SINGLE (PORTABLE) INDICATION: Near syncope COMPARISON: Chest radiograph 03/19/18. FINDINGS: TUBES and LINES: None. LUNGS: Lungs are hyperinflated. There is no evidence of pneumonia or pulmonary edema. PLEURA: No pleural effusion or pneumothorax. HEART AND MEDIASTINUM: The cardiomediastinal silhouette is unchanged. Atherosclerotic calcifications in the aorta. BONES AND SOFT TISSUES: No acute osseous lesion. Soft tissues are unremarkable. UPPER ABDOMEN: No free air under the diaphragm. IMPRESSION: Emphysematous changes of the lungs without evidence of pneumonia or pulmonary edema. Signed by: Dr. Cruz Geller MD on 03/30/2018 7:45 AM
[2018-03-30 07:54] LABS: BASOPHILS % 0.3 % (0.0-1.0); EOSINOPHILS # (AUTO) 0.2 (0.0-0.4); EOSINOPHILS % 2.8 % (0.0-6.0); HEMATOCRIT 36.6 % (34.2-44.1); HEMOGLOBIN 12.6 g/dL (12.0-16.0); LYMPHOCYTES # (AUTO) 1.6 (1.0-3.2); LYMPHOCYTES % 23.9 % (18.0-39.1); MEAN CORPUSCULAR HEMOGLOBIN 32.1 pg (28-32); MEAN CORPUSCULAR HGB CONC 34.4 g/dL (31-35); MEAN CORPUSCULAR VOLUME 93.1 fL (81-99); MONOCYTES # (AUTO) 0.8 (0.2-0.8); MONOCYTES % 11.9 % (4.4-11.3); NEUTROPHILS % 60.4 % (38.7-80.0); PLATELET COUNT 297 x10e3/uL (140-360); RED BLOOD COUNT 3.93 x10e6/uL (3.6-5.1); RED CELL DISTRIBUTION WIDTH 13.6 % (11.7-14.4)
[2018-03-30 08:15] LABS: ALANINE AMINOTRANSFERASE 25 IU/L (0-55); ALBUMIN 3.6 g/dL (3.5-5.0); ALBUMIN/GLOBULIN RATIO 0.8 (0.8-2.0); ALKALINE PHOSPHATASE 157 IU/L (40-150); ANION GAP 14.9 mmol/L (8-16); BLOOD UREA NITROGEN 36 mg/dL (7-26); BUN/CREATININE RATIO 36 (6-25); CARBON DIOXIDE 24 mmol/L (22-29); CHLORIDE 88 mmol/L (98-107); CREATINE KINASE 31 IU/L (29-168); CREATININE, SERUM 0.99 mg/dL (0.57-1.11); EST GLOMERULAR FILTRATION RATE 53 ML/MIN (60-); GLUCOSE 98 mg/dL (74-118); POTASSIUM 3.9 mmol/L (3.5-5.1); SODIUM 123 mmol/L (136-145)
[2018-03-30] MEDS ORDERED: ASPIRIN 81 MG CHEW TAB PO ONE (08:30)
[2018-03-30 08:45] LABS: BILIRUBIN,URINE NEGATIVE (NEGATIVE); CLARITY,URINE CLEAR (CLEAR); COLOR,URINE YELLOW (YELLOW); KETONES,URINE NEGATIVE (NEGATIVE); LEUKOCYTE ESTERASE ,URINE NEGATIVE (NEGATIVE); NITRITE,URINE NEGATIVE (NEGATIVE); PROTEIN,URINE DIPSTICK NEGATIVE (NEGATIVE); URINE UROBILINOGEN 0.2 mg/dL (0.2 - 1)
[2018-03-30 08:46] LABS: EPITHELIAL CELLS,URINE RARE /LPF
[2018-03-30] MEDS ORDERED: FUROSEMIDE40 MG PO (10:15)
[2018-03-30] MEDS ORDERED: XARELTO10 MG PO (10:19)
[2018-03-30] MEDS ORDERED: POTASSIUM CHLO10 ME1 PO (10:19)
[2018-03-30] MEDS: SODIUM CHLORIDE 0.9% 1000ML 1,000 ML IV SCH ×2 (12:59→19:48)
[2018-03-30 15:15] VITALS: BP 137/62
[2018-03-30 15:16] VITALS: BP 137/62
[2018-03-30 15:17] VITALS: BP 137/62
[2018-03-30 15:58] LABS: CREATINE KINASE 53 IU/L (29-168)
[2018-03-30 16:46] VITALS: BP 143/65
[2018-03-30] MEDS ORDERED: BENZONATATE 100 MG CAP PO PRN (18:45)
[2018-03-30] MEDS: FUROSEMIDE 40 MG TAB PO SCH (19:48)
[2018-03-30 20:06] VITALS: BP 113/64
[2018-03-30] MEDS: PHENYTOIN 50 MG TAB PO SCH (21:09)
[2018-03-30] MEDS: FLECAINIDE ACETATE 100 MG TAB PO SCH (21:09)
[2018-03-30 22:19] VITALS: BP 113/64
[2018-03-31] VITALS (7 sets, daily range): BP systolic 105–138; BP diastolic 55–88
[2018-03-31] MEDS: SODIUM CHLORIDE 0.9% 1000ML 1,000 ML IV SCH ×2 (00:11→06:00)
[2018-03-31 00:38] LABS: CREATINE KINASE MB 1.3 ng/mL (0-5.0)
[2018-03-31 05:29] LABS: CHOL/HDL RATIO 2.1 (3.0-3.6)
[2018-03-31] MEDS ORDERED: DIGOXIN 0.125 MG TAB PO SCH (09:00)
[2018-03-31] MEDS ORDERED: ASPIRIN 325 MG TAB PO SCH (09:00)
[2018-03-31] MEDS: FLECAINIDE ACETATE 100 MG TAB PO SCH ×2 (09:29→21:21)
[2018-03-31] MEDS: LORATADINE 10 MG TAB PO SCH (09:29)
[2018-03-31] MEDS: FUROSEMIDE 40 MG TAB PO SCH (09:29)
[2018-03-31] MEDS: PHENYTOIN 50 MG TAB PO SCH ×3 (09:29→21:21)
[2018-03-31] MEDS ORDERED: NITROGLYCERIN 0.4 MG SUBL SL SCH (10:00)
[2018-03-31 10:09] LABS: BLOOD UREA NITROGEN 26 mg/dL (7-26); BUN/CREATININE RATIO 34 (6-25); CARBON DIOXIDE 20 mmol/L (22-29); CHLORIDE 96 mmol/L (98-107); CREATININE, SERUM 0.77 mg/dL (0.57-1.11); EST GLOMERULAR FILTRATION RATE > 60 ML/MIN (60-); GLUCOSE 86 mg/dL (74-118); SODIUM 127 mmol/L (136-145)
[2018-03-31] MEDS ORDERED: PHENYTOIN SODI300 MG PO (10:25)
[2018-03-31] MEDS ORDERED: VENTOLIN HFA18 GM (10:27)
[2018-03-31 10:32] LABS: PHENYTOIN (DILANTIN) 17.29 ug/mL (10-20); THYROID STIMULATING HORMONE 0.651 uIU/mL (0.350-4.940)
[2018-03-31] MEDS: RIVAROXABAN 15 MG TABLET PO SCH (11:00)
--- NOTE | 2018-03-31 11:25 | History and Physical ---
PRIMARY CARE PHYSICIAN: Dr. Lashawn Lazar. CHIEF COMPLAINT: Syncopal episode, possible seizure. HISTORY: An 87-year-old female who came in with a syncopal episode. The patient has some forgetfulness. Apparently, she was passing out when she was brought into the hospital. She could not remember the episode. The patient was otherwise stable. She is doing much better. She does have history of dementia associated with seizure as well. The patient is also with atrial fibrillation on antiplatelet therapy and flecainide. Currently, the patient is stable. PAST MEDICAL HISTORY: Atrial fibrillation, hypertension, osteoporosis, recurrent fall, seizure disorder, dementia, chronic low sodium level, chronic fluid retention. PAST SURGICAL HISTORY: She had left wrist surgery, hysterectomy, status post hip surgery. SOCIAL HISTORY: [facility] ALLERGIES: PENICILLIN, SHELLFISH, OYSTER IRON, NIFEDIPINE, SHELLFISH DERIVATIVE. HOME MEDICATIONS: List is reviewed. She is on aspirin, Tylenol, digoxin, flecainide, furosemide, Xopenex, loratadine, metoprolol tartrate, nitroglycerin p.r.n., Benicar, Dilantin, potassium and Xarelto. PHYSICAL EXAMINATION VITAL SIGNS: Temperature is 98, blood pressure 136/79, pulse rate is 80, respirations 18. GENERAL: The patient is not in acute distress. She is awake and alert. HEENT: Normocephalic, atraumatic and anicteric. NECK: Supple grossly. PULMONARY: Diminished breath sounds without any wheezing or rales. CARDIOVASCULAR: S1, S2. Irregularly irregular rate control. ABDOMEN: Soft, nontender, no distention. EXTREMITIES: No gross cyanosis or edema. NEUROLOGIC: No gross focal deficit. LABORATORY DATA: Sodium is 123, potassium 3.9, chloride 88, bicarb 24, BUN 36, creatinine 0.9, glucose 98. WBC is 6.7, hemoglobin 12.6, hematocrit 36.6, platelets 297. IMPRESSION 1. Syncopal episode most likely secondary to either low blood pressure, cardiac arrhythmia or seizure. 2. Multiple chronic baseline problems including atrial fibrillation, hypertension, and dementia. PLAN: Resume home medication. Check Dilantin level. Fluid restriction. Patient did receive IV fluid normal saline, we will discontinue. Cut back on the furosemide to 40 mg once a day. Patient remained on observation at this time. If everything is checked out with respect to repeated blood work, the patient should be able to go home within 24 to 48 hours. Job#: [id number] JULIA
[2018-03-31] MEDS ORDERED: POTASSIUM CHLORIDE 10MEQ EA PO SCH (17:00)
[2018-03-31] MEDS: OLMESARTAN 20 MG TAB PO SCH (17:01)
[2018-03-31] MEDS: METOPROLOL TARTRATE 50 MG TAB PO SCH (17:02)
[2018-03-31] MEDS: POTASSIUM CHLORIDE 10MEQ EA PO SCH (17:02)
[2018-04-01] VITALS: BP 108/66
[2018-04-01 05:30] VITALS: BP 131/65
[2018-04-01 08:08] VITALS: BP 127/62
[2018-04-01] MEDS ORDERED: RIVAROXABAN 10 MG TABLET PO SCH (09:00)
[2018-04-01] MEDS ORDERED: RIVAROXABAN 15 MG TABLET PO SCH (09:00)
[2018-04-01] MEDS ORDERED: OCUVITE PRESERVISION TABLET PO SCH (09:00)
[2018-04-01] MEDS ORDERED: FUROSEMIDE 40 MG TAB PO SCH (09:00)
[2018-04-01] MEDS: LORATADINE 10 MG TAB PO SCH (09:01)
[2018-04-01] MEDS: PHENYTOIN 50 MG TAB PO SCH (09:01)
[2018-04-01] MEDS: OLMESARTAN 20 MG TAB PO SCH (09:01)
[2018-04-01] MEDS: METOPROLOL TARTRATE 50 MG TAB PO SCH (09:02)
[2018-04-01] MEDS: POTASSIUM CHLORIDE 10MEQ EA PO SCH (09:02)
[2018-04-01] MEDS: FLECAINIDE ACETATE 100 MG TAB PO SCH (09:02)
[2018-04-01] MEDS: RIVAROXABAN 15 MG TABLET PO SCH (09:02)
[2018-04-01 11:32] VITALS: BP 114/60
[2018-04-01] MEDS ORDERED: BENICAR20 MG PO ×2 (13:39→14:46)
[2018-04-01] MEDS ORDERED: OLMESARTAN 20 MG TAB PO SCH ×2 (14:00→14:44)
--- NOTE | 2018-04-02 20:01 | Discharge Summary ---
PRIMARY CARE PHYSICIAN: Dr. Lashawn Lazar. FINAL DIAGNOSES 1. Syncopal episode, most likely secondary to seizure. 2. Dilantin level, therapeutic. 3. Possible hypotensive secondary to high blood pressure medication. SUMMARY: This 87-year-old female is completely stable now. Apparently, she had an episode of passing out. Her blood pressure was low, systolic in the 100. The patient is on multiple blood pressure medications. Patient is otherwise stable at this time. Her workup is otherwise negative. The patient will go home today and we will continue with her home medications except for Benicar. Instead of taking Benicar 20 mg twice a day, she will take it 20 mg once a day. She will resume her other medications. She is on Xarelto already. We will discontinue the aspirin. Patient is stable and discharged to home. Follow up with Dr. Lazar within 1-2 weeks. Job#: [id number] JA
== END 2018-04-01 15:44 | disposition home or self-care (01) ==
LOC: ER 06:38 → ERHOLD 08:39 → IMCU 15:01
PROVIDERS: ADMIT Internal Medicine; ATTEND Internal Medicine
DX: R55 Syncope and collapse (principal); G40.909 Epilepsy, unspecified, not intractable, without status epilepticus; I48.91 Unspecified atrial fibrillation; F03.90 Unspecified dementia, unspecified severity, without behavioral disturbance, psychotic disturbance, mood disturbance, and anxiety; I10 Essential (primary) hypertension; Z91.81 History of falling; Z88.8 Allergy status to other drugs, medicaments and biological substances; Z88.0 Allergy status to penicillin; Z91.013 Allergy to seafood; I95.9 Hypotension, unspecified
CPT/HCPCS: 36415 ×2; 70450; 71045; 80048; 80053; 80061; 80185; 81001; 82550; 82553; 82607; 84443; 84484; 85025; 93005; 93306; 93880; 99282; G0378 ×3; J7030 ×2

== ENCOUNTER 2018-05-13 12:36 | Inpatient (IN) | payer OTHER ==
[~2018-05-13] VITALS: Ht 157.5 cm; Wt 54.0 kg
[~2018-05-13 12:36] MED LIST changes: +FUROSEMIDE40 MG PO; +PHENYTOIN SODI300 MG PO; +POTASSIUM CHLO10 ME1 PO; +VENTOLIN HFA18 GM; +XARELTO10 MG PO
[2018-05-13 15:01] LABS: BASOPHILS % 0.7 % (0.0-1.0); EOSINOPHILS # (AUTO) 0.5 (0.0-0.4); EOSINOPHILS % 7.6 % (0.0-6.0); HEMOGLOBIN 12.5 g/dL (12.0-16.0); INR 0.96; LYMPHOCYTES # (AUTO) 1.2 (1.0-3.2); LYMPHOCYTES % 19.8 % (18.0-39.1); MEAN CORPUSCULAR HEMOGLOBIN 32.7 pg (28-32); MEAN CORPUSCULAR HGB CONC 33.8 g/dL (31-35); MEAN CORPUSCULAR VOLUME 96.9 fL (81-99); MONOCYTES # (AUTO) 0.6 (0.2-0.8); MONOCYTES % 10.3 % (4.4-11.3); NEUTROPHILS # (AUTO) 3.7 (2.1-6.9); NEUTROPHILS % 61.1 % (38.7-80.0); PLATELET COUNT 270 x10e3/uL (140-360); PROTHROMBIN TIME 13.7 seconds (11.9-14.5); RED BLOOD COUNT 3.82 x10e6/uL (3.6-5.1); RED CELL DISTRIBUTION WIDTH 15.2 % (11.7-14.4)
[2018-05-13 15:13] LABS: ALBUMIN 4.1 g/dL (3.5-5.0); ALBUMIN/GLOBULIN RATIO 0.8 (0.8-2.0); ANION GAP 14.2 mmol/L (8-16); CALCIUM 9.4 mg/dL (8.4-10.2); CREATININE, SERUM 0.91 mg/dL (0.57-1.11); POTASSIUM 4.2 mmol/L (3.5-5.1)
[2018-05-13 15:20] LABS: CREATINE KINASE MB 2.2 ng/mL (0-5.0)
[2018-05-13] MEDS ORDERED: ONDANSETRON HCL INJ 2 MG/ML VIAL IV PRN (17:15)
[2018-05-13] MEDS ORDERED: ALBUTEROL/IPRATROPIUM 3 ML NEB NEB ONE (17:30)
[2018-05-13] MEDS ORDERED: SODIUM CHLORIDE 0.9% 1000ML 1,000 ML ONE (18:19)
[2018-05-13] MEDS: SODIUM CHLORIDE 0.9% 1000ML 1,000 ML IV SCH (18:22)
[2018-05-13 18:42] LABS: CLARITY,URINE CLOUDY (CLEAR); COLOR,URINE YELLOW (YELLOW); LEUKOCYTE ESTERASE ,URINE 2+ (NEGATIVE); NITRITE,URINE POSITIVE (NEGATIVE); PROTEIN,URINE DIPSTICK TRACE (NEGATIVE)
[2018-05-13 18:43] LABS: BILIRUBIN,URINE NEGATIVE (NEGATIVE); KETONES,URINE NEGATIVE (NEGATIVE); URINE UROBILINOGEN 0.2 mg/dL (0.2 - 1)
[2018-05-13 18:45] LABS: BACTERIA,URINE MANY /HPF; EPITHELIAL CELLS,URINE FEW /LPF; RBC,URINE 0-5 /HPF (0-5)
[2018-05-13 18:46] LABS: TRIPLE PHOSPHATE CRYSTAL,UR FEW (FEW)
--- NOTE | 2018-05-13 18:49 | Diagnostic Imaging Report ---
EXAMINATION: PA and lateral views of the chest. COMPARISON: Portable chest 03/30/2018 CLINICAL HISTORY: Cough, shortness of breath DISCUSSION: Lines/tubes: None. Lungs: Lungs are hyperinflated. No consolidation or pulmonary edema. Pleura: There is no pleural effusion or pneumothorax. Heart and mediastinum: Stable enlargement of the cardiac silhouette. Pulmonary vasculature is normal. Bones and soft tissues: No acute bony abnormalities. Degenerative changes in the thoracic spine IMPRESSION: Hyperinflated lungs, suggesting COPD. No acute cardiopulmonary abnormalities. Signed by: Dr. Fran Jarquin M.D. on 05/13/2018 6:45 PM
[2018-05-13 20:00] VITALS: BP 120/58
[2018-05-13 20:50] VITALS: BP 120/58
[2018-05-13] MEDS: ALBUTEROL/IPRATROPIUM 3 ML NEB NEB PRN (21:50)
[2018-05-13] MEDS: AZTREONAM 1 GM/NS 50 ML 50 ML IV SCH (22:43)
[2018-05-13 23:17] LABS: CREATINE KINASE MB 2.9 ng/mL (0-5.0)
[2018-05-14] VITALS (8 sets, daily range): BP systolic 109–175; BP diastolic 56–82
[2018-05-14] MEDS: ALBUTEROL/IPRATROPIUM 3 ML NEB NEB PRN ×2 (04:15→11:00)
[2018-05-14 05:23] LABS: BASOPHILS % 0.4 % (0.0-1.0); EOSINOPHILS # (AUTO) 0.6 (0.0-0.4); EOSINOPHILS % 8.2 % (0.0-6.0); HEMATOCRIT 34.2 % (34.2-44.1); HEMOGLOBIN 11.6 g/dL (12.0-16.0); LYMPHOCYTES # (AUTO) 1.8 (1.0-3.2); LYMPHOCYTES % 25.5 % (18.0-39.1); MEAN CORPUSCULAR HEMOGLOBIN 32.8 pg (28-32); MEAN CORPUSCULAR HGB CONC 33.9 g/dL (31-35); MEAN CORPUSCULAR VOLUME 96.6 fL (81-99); MONOCYTES # (AUTO) 0.7 (0.2-0.8); MONOCYTES % 9.9 % (4.4-11.3); NEUTROPHILS # (AUTO) 3.9 (2.1-6.9); NEUTROPHILS % 55.7 % (38.7-80.0); PLATELET COUNT 224 x10e3/uL (140-360); RED BLOOD COUNT 3.54 x10e6/uL (3.6-5.1)
[2018-05-14 05:55] LABS: ANION GAP 10.9 mmol/L (8-16); BLOOD UREA NITROGEN 18 mg/dL (7-26); BUN/CREATININE RATIO 24 (6-25); CARBON DIOXIDE 25 mmol/L (22-29); CHLORIDE 97 mmol/L (98-107); CREATININE, SERUM 0.74 mg/dL (0.57-1.11); EST GLOMERULAR FILTRATION RATE > 60 ML/MIN (60-); GLUCOSE 99 mg/dL (74-118); POTASSIUM 3.9 mmol/L (3.5-5.1); SODIUM 129 mmol/L (136-145)
[2018-05-14] MEDS: AZTREONAM 1 GM/NS 50 ML 50 ML IV SCH ×3 (06:05→21:52)
[2018-05-14] MEDS: SODIUM CHLORIDE 0.9% 1000ML 1,000 ML IV SCH ×2 (06:26→21:50)
--- NOTE | 2018-05-14 06:53 | Diagnostic Imaging Report ---
EXAMINATION: CHEST SINGLE (PORTABLE) INDICATION: Shortness of breath. COMPARISON: 03/30/2018 FINDINGS: AP view TUBES and LINES: None. LUNGS: Lungs are hyper inflated. Lungs are clear. There is no evidence of pneumonia or pulmonary edema. PLEURA: No pleural effusion or pneumothorax. HEART AND MEDIASTINUM: Stable moderate enlargement of the cardiac silhouette. Aortic calcifications. BONES AND SOFT TISSUES: No acute osseous lesion. Soft tissues are unremarkable. UPPER ABDOMEN: No free air under the diaphragm. IMPRESSION: No acute thoracic abnormality. Signed by: DR. Jose Roberts MD on 05/14/2018 6:50 AM
[2018-05-14] MEDS ORDERED: NITROGLYCERIN 0.4 MG SUBL SL PRN (11:15)
[2018-05-14] MEDS ORDERED: DIGOXIN 0.125 MG TAB PO SCH (12:00)
[2018-05-14] MEDS: METHYLPREDNISOLONE SOD SUCC 40 MG/ML VIAL IV SCH ×3 (13:00→21:52)
[2018-05-14] MEDS: DOXYCYCLINE HYCLATE TABLET 100 MG TAB PO SCH ×2 (13:00→16:58)
[2018-05-14] MEDS: LORATADINE 10 MG TAB PO SCH (13:00)
[2018-05-14] MEDS: GUAIFENESIN 600 MG TAB PO SCH ×2 (13:00→16:58)
[2018-05-14] MEDS: GUAIFENESIN/CODEINE 10 ML CUP PO PRN (13:10)
[2018-05-14] MEDS: FLECAINIDE ACETATE 100 MG TAB PO SCH (13:10)
--- NOTE | 2018-05-14 13:16 | History and Physical ---
PRIMARY CARE PHYSICIAN: Dr. Lashawn Lazar. CHIEF COMPLAINT 1. Upper respiratory problem associated with cough, fever, wheezing 2. Urinary tract infection. HISTORY: Patient is an 87-year-old female who came in with increase in coughing, shortness of breath, and wheezing. The patient has also had fever at home. Patient complained of difficulty breathing. She was having wheezing in the emergency room, requiring nebulizer treatment. She has also had urinary tract infection as well. The patient is not feeling well. She is having persistent cough. The patient came to the emergency room through ambulance. PAST MEDICAL HISTORY 1. Atrial fibrillation, on anticoagulant therapy. 2. Cardiac arrhythmia. 3. Hypertension. 4. Osteoporosis with fall risk. 5. Seizure disorder. 6. Chronic early dementia. 7. Chronic low sodium level. 8. Chronic obstructive pulmonary disease. PAST SURGICAL HISTORY: Left wrist surgery, hysterectomy, and hip surgery. SOCIAL HISTORY: Patient lives in assisted living. ALLERGIES: PENICILLIN, SHELLFISH, OYSTER, IRON, NIFEDIPINE, SHELLFISH DERIVATIVE. HOME MEDICATIONS: List is reviewed. REVIEW OF SYSTEMS: Shortness of breath, wheezing, not feeling well, sinus congestion. PHYSICAL EXAMINATION VITAL SIGNS: Temperature is 97, blood pressure 169/93, pulse rate 84, respirations 22. GENERAL: The patient is having cough and wheezing, but not in any distress. HEENT: Normocephalic, atraumatic. Sclerae anicteric. NECK: Supple grossly. PULMONARY: Bilaterally coarse and wheezing. CARDIOVASCULAR: S1, S2. Irregularly irregular rate control. ABDOMEN: Soft, nontender. No distension. EXTREMITIES: No gross cyanosis or edema. NEUROLOGIC: No gross focal deficit. LABORATORY: Sodium is 129, potassium 3.9, chloride 97, bicarb 25, BUN 18, creatinine 0.7, glucose 99. WBC 6.9, hemoglobin 11.6, hematocrit 34.2, platelets are 224. Chest x-ray is unremarkable. Urinalysis, 2+ leukocyte esterase, many bacteria. IMPRESSION 1. Acute exacerbation of chronic obstructive pulmonary disease with acute bronchitis and upper respiratory infection associated with coarse in the lung and wheezing and shortness of breath. 2. Urinary tract infection. 3. Chronic hyponatremia. 4. Multiple chronic baseline problems. PLAN 1. CT of the chest without contrast to make sure that she does not have pneumonia. The patient has normal chest x-ray; however, that was 1 view taken. 2. Continue with antibiotics. 3. Home medications resumed. 4. We will check repeated lab work. 5. PT/OT. The patient will be admitted to inpatient. Job#: [id number] LPA
[2018-05-14 13:56] LABS: CREATINE KINASE MB 2.5 ng/mL (0-5.0)
[2018-05-14] MEDS: LEVALBUTEROL HCL SOLN NEBU 1.25 MG/3 ML NEB INH SCH ×2 (14:05→18:55)
[2018-05-14] MEDS: IPRATROPIUM BROMIDE 0.02% 2.5 ML NEB NEB SCH ×2 (14:05→18:55)
[2018-05-14] MEDS: OCUVITE PRESERVISION TABLET PO SCH (16:58)
[2018-05-14] MEDS: METOPROLOL TARTRATE 50 MG TAB PO SCH (16:58)
[2018-05-14] MEDS ORDERED: POTASSIUM CHLORIDE 20MEQ/15ML UDC PO SCH (17:00)
--- NOTE | 2018-05-14 18:12 | Diagnostic Imaging Report ---
EXAMINATION: CT scan of the chest without contrast. TECHNIQUE: Spiral CT images of the chest were performed from the lung apices to the level of the adrenal glands. No intravenous contrast was administered the physician's request. Coronal and sagittal reformatted images were obtained. COMPARISON: Chest AP 05/14/2018 CT CHEST without 01/26/2018 CLINICAL HISTORY:Shortness of breath DISCUSSION: ABSENCE OF INTRAVENOUS CONTRAST DECREASES SENSITIVITY FOR DETECTION OF FOCAL LESIONS AND VASCULAR PATHOLOGY. LINES/TUBES: None. LUNGS AND AIRWAYS: Stable bilateral lower lobe linear subpleural opacities along the posterior and medial right lower lobe and to a lesser degree left lower lobe, likely representing scarring (series 3, image 97 and 100). No consolidation, masses or nodules. Airways are clear, without endobronchial lesions. PLEURA: No pneumothorax or pleural effusions. HEART AND MEDIASTINUM: Stable 2.0 cm peripherally calcified hypodense lesion in the left thyroid lobe (series 2, image 20) disease. Stable hypodense 1.6 cm peripherally calcified lesion in the right thyroid lobe (series 2, image 21). Mild to moderate cardio megaly. No pericardial effusion. Atherosclerotic calcification of the aortic valves, coronary arteries, thoracic arch and mitral annulus. Aorta is nonaneurysmal. Main pulmonary artery is borderline enlarged, measuring 3.0 cm. LYMPH NODES: No mediastinal or axillary adenopathy. Difficult to assess for hilar adenopathy given the lack of intravenous contrast. Stable partly calcified right upper paratracheal and right hilar lymph nodes (series 2, images 54 and 58). ABDOMEN: Limited unenhanced views of the upper abdomen show no abnormality within the visualized liver, pancreas, or left kidney. Calcified splenic granulomata. The adrenal glands are unremarkable. BONES AND SOFT TISSUES: Generalized osteopenia. Multilevel degenerative disc changes in the thoracic spine. Stable 2.1 cm T8 vertebral body hemangioma. Soft tissues are grossly unremarkable. IMPRESSION: 1. Stable linear subpleural scarring along the posterior and medial right lower lobe and to lesser degree left lower lobe. No consolidation, masses or nodules. 2. Stable bilateral thyroid lobe hypodense nodules with peripheral calcification. 3. Prior granulomatous disease. Signed by: Dr. Fran Jarquin M.D. on 05/14/2018 6:09 PM
[2018-05-14] MEDS: PHENYTOIN SODIUM EXT REL 100 MG CAP PO SCH (21:52)
[2018-05-15] VITALS (7 sets, daily range): BP systolic 121–154; BP diastolic 72–90
[2018-05-15] MEDS: LEVALBUTEROL HCL SOLN NEBU 1.25 MG/3 ML NEB INH SCH ×4 (02:00→19:45)
[2018-05-15] MEDS: IPRATROPIUM BROMIDE 0.02% 2.5 ML NEB NEB SCH ×4 (02:00→19:45)
[2018-05-15] MEDS: FLECAINIDE ACETATE 100 MG TAB PO SCH ×2 (04:01→13:10)
[2018-05-15] MEDS: GUAIFENESIN/CODEINE 10 ML CUP PO PRN ×2 (04:06→20:22)
[2018-05-15 05:41] LABS: BASOPHILS % 0.2 % (0.0-1.0); EOSINOPHILS % 0.6 % (0.0-6.0); HEMATOCRIT 31.6 % (34.2-44.1); HEMOGLOBIN 10.7 g/dL (12.0-16.0); LYMPHOCYTES # (AUTO) 0.9 (1.0-3.2); LYMPHOCYTES % 13.2 % (18.0-39.1); MEAN CORPUSCULAR HEMOGLOBIN 33.3 pg (28-32); MEAN CORPUSCULAR HGB CONC 33.9 g/dL (31-35); MEAN CORPUSCULAR VOLUME 98.4 fL (81-99); MONOCYTES # (AUTO) 0.4 (0.2-0.8); MONOCYTES % 6.5 % (4.4-11.3); NEUTROPHILS # (AUTO) 5.3 (2.1-6.9); NEUTROPHILS % 78.9 % (38.7-80.0); PLATELET COUNT 214 x10e3/uL (140-360); RED BLOOD COUNT 3.21 x10e6/uL (3.6-5.1)
[2018-05-15 06:02] LABS: BLOOD UREA NITROGEN 16 mg/dL (7-26); BUN/CREATININE RATIO 21 (6-25); CALCIUM 8.9 mg/dL (8.4-10.2); CARBON DIOXIDE 24 mmol/L (22-29); CHLORIDE 99 mmol/L (98-107); CREATININE, SERUM 0.75 mg/dL (0.57-1.11); EST GLOMERULAR FILTRATION RATE > 60 ML/MIN (60-); GLUCOSE 125 mg/dL (74-118); SODIUM 130 mmol/L (136-145)
[2018-05-15] MEDS: METHYLPREDNISOLONE SOD SUCC 40 MG/ML VIAL IV SCH ×3 (06:09→22:51)
[2018-05-15] MEDS: AZTREONAM 1 GM/NS 50 ML 50 ML IV SCH ×3 (06:09→22:51)
[2018-05-15] MEDS: LORATADINE 10 MG TAB PO SCH ×2 (09:00→09:05)
[2018-05-15] MEDS: DOXYCYCLINE HYCLATE TABLET 100 MG TAB PO SCH ×2 (09:05→17:38)
[2018-05-15] MEDS: OCUVITE PRESERVISION TABLET PO SCH ×2 (09:05→17:38)
[2018-05-15] MEDS: GUAIFENESIN 600 MG TAB PO SCH ×2 (09:05→17:38)
[2018-05-15] MEDS: PHENYTOIN SODIUM EXT REL 100 MG CAP PO SCH (09:05)
[2018-05-15] MEDS: METOPROLOL TARTRATE 50 MG TAB PO SCH ×2 (09:05→17:38)
[2018-05-15] MEDS: OLMESARTAN 20 MG TAB PO SCH (09:05)
[2018-05-15] MEDS: LEVALBUTEROL HCL SOLN NEBU 1.25 MG/3 ML NEB INH PRN ×2 (15:17→23:00)
[2018-05-15] MEDS: ACETAMINOPHEN 325 MG TAB PO PRN (17:38)
[2018-05-15] MEDS: RIVAROXABAN 15 MG TABLET PO SCH (17:38)
[2018-05-16] VITALS: BP 170/90
[2018-05-16] MEDS: ACETAMINOPHEN 325 MG TAB PO PRN ×2 (00:27→06:46)
[2018-05-16] MEDS: BENZONATATE 100 MG CAP PO PRN ×2 (00:27→12:42)
[2018-05-16] MEDS: FLECAINIDE ACETATE 100 MG TAB PO SCH ×2 (01:54→14:18)
[2018-05-16] MEDS: LEVALBUTEROL HCL SOLN NEBU 1.25 MG/3 ML NEB INH SCH ×4 (02:05→19:30)
[2018-05-16] MEDS: IPRATROPIUM BROMIDE 0.02% 2.5 ML NEB NEB SCH ×4 (02:05→19:30)
[2018-05-16 04:00] VITALS: BP 149/91
[2018-05-16] MEDS: GUAIFENESIN/CODEINE 10 ML CUP PO PRN ×2 (06:46→12:42)
[2018-05-16] MEDS: AZTREONAM 1 GM/NS 50 ML 50 ML IV SCH ×3 (06:46→21:22)
[2018-05-16] MEDS: METHYLPREDNISOLONE SOD SUCC 40 MG/ML VIAL IV SCH ×3 (06:46→21:22)
[2018-05-16 08:00] VITALS: BP 163/98
[2018-05-16] MEDS: LORATADINE 10 MG TAB PO SCH (09:00)
[2018-05-16] MEDS: DOXYCYCLINE HYCLATE TABLET 100 MG TAB PO SCH ×2 (09:50→17:28)
[2018-05-16] MEDS: PHENYTOIN SODIUM EXT REL 100 MG CAP PO SCH (09:50)
[2018-05-16] MEDS: OCUVITE PRESERVISION TABLET PO SCH ×2 (09:50→17:28)
[2018-05-16] MEDS: GUAIFENESIN 600 MG TAB PO SCH ×2 (09:50→17:28)
[2018-05-16] MEDS: OLMESARTAN 20 MG TAB PO SCH (09:50)
[2018-05-16] MEDS: METOPROLOL TARTRATE 50 MG TAB PO SCH ×2 (09:50→17:28)
[2018-05-16 11:56] VITALS: BP 150/71
[2018-05-16] MEDS: LEVALBUTEROL HCL SOLN NEBU 1.25 MG/3 ML NEB INH PRN (14:40)
[2018-05-16 16:39] VITALS: BP 160/90
[2018-05-16] MEDS: RIVAROXABAN 15 MG TABLET PO SCH (17:28)
[2018-05-16 20:00] VITALS: BP 124/81
[2018-05-16] MEDS ORDERED: BACITRACIN ZINC 15 GM OINT TOP SCH (21:00)
[2018-05-17] VITALS (9 sets, daily range): BP systolic 118–172; BP diastolic 79–94
[2018-05-17] MEDS: LEVALBUTEROL HCL SOLN NEBU 1.25 MG/3 ML NEB INH SCH ×4 (01:25→19:30)
[2018-05-17] MEDS: IPRATROPIUM BROMIDE 0.02% 2.5 ML NEB NEB SCH ×4 (01:25→19:30)
[2018-05-17] MEDS: ACETAMINOPHEN 325 MG TAB PO PRN ×2 (01:58→21:59)
[2018-05-17] MEDS: GUAIFENESIN/CODEINE 10 ML CUP PO PRN (01:58)
[2018-05-17] MEDS: FLECAINIDE ACETATE 100 MG TAB PO SCH ×2 (01:59→13:02)
[2018-05-17] MEDS: AZTREONAM 1 GM/NS 50 ML 50 ML IV SCH ×3 (05:27→21:59)
[2018-05-17] MEDS: METHYLPREDNISOLONE SOD SUCC 40 MG/ML VIAL IV SCH ×3 (05:27→21:59)
[2018-05-17 05:35] LABS: BASOPHILS % 0.1 % (0.0-1.0); EOSINOPHILS % 0.1 % (0.0-6.0); HEMOGLOBIN 10.7 g/dL (12.0-16.0); LYMPHOCYTES # (AUTO) 0.8 (1.0-3.2); LYMPHOCYTES % 9.3 % (18.0-39.1); MEAN CORPUSCULAR HEMOGLOBIN 32.7 pg (28-32); MEAN CORPUSCULAR HGB CONC 33.4 g/dL (31-35); MEAN CORPUSCULAR VOLUME 97.9 fL (81-99); MONOCYTES # (AUTO) 0.8 (0.2-0.8); MONOCYTES % 9.2 % (4.4-11.3); NEUTROPHILS % 80.7 % (38.7-80.0); PLATELET COUNT 208 x10e3/uL (140-360); RED BLOOD COUNT 3.27 x10e6/uL (3.6-5.1); RED CELL DISTRIBUTION WIDTH 14.8 % (11.7-14.4)
[2018-05-17 05:58] LABS: ANION GAP 8.3 mmol/L (8-16); BLOOD UREA NITROGEN 21 mg/dL (7-26); BUN/CREATININE RATIO 31 (6-25); CALCIUM 8.5 mg/dL (8.4-10.2); CARBON DIOXIDE 24 mmol/L (22-29); CHLORIDE 93 mmol/L (98-107); CREATININE, SERUM 0.68 mg/dL (0.57-1.11); EST GLOMERULAR FILTRATION RATE > 60 ML/MIN (60-); GLUCOSE 111 mg/dL (74-118); POTASSIUM 4.3 mmol/L (3.5-5.1); SODIUM 121 mmol/L (136-145)
[2018-05-17] MEDS: OLMESARTAN 20 MG TAB PO SCH (08:40)
[2018-05-17] MEDS: POTASSIUM CHLORIDE 10MEQ EA PO SCH ×2 (08:40→16:33)
[2018-05-17] MEDS: LORATADINE 10 MG TAB PO SCH (08:40)
[2018-05-17] MEDS: PHENYTOIN SODIUM EXT REL 100 MG CAP PO SCH (08:40)
[2018-05-17] MEDS: DOXYCYCLINE HYCLATE TABLET 100 MG TAB PO SCH ×2 (08:40→16:34)
[2018-05-17] MEDS: METOPROLOL TARTRATE 50 MG TAB PO SCH ×2 (08:40→16:34)
[2018-05-17] MEDS: OCUVITE PRESERVISION TABLET PO SCH ×2 (08:40→16:34)
[2018-05-17] MEDS: GUAIFENESIN 600 MG TAB PO SCH ×2 (08:40→16:34)
[2018-05-17] MEDS: RIVAROXABAN 15 MG TABLET PO SCH (16:34)
[2018-05-17] MEDS ORDERED: FUROSEMIDE INJ 10 MG/ML 2 ML VIAL IV ONE (18:00)
[2018-05-17] MEDS: ACETYLCYSTEINE 20% INHAL SOLN 30 ML VIAL INH SCH (18:00)
--- NOTE | 2018-05-17 18:38 | Consultation ---
DATE OF CONSULTATION: PULMONARY CONSULTATION REASON FOR CONSULTATION: Intractable cough. HISTORY OF PRESENT ILLNESS: Ms. Aguirre is an 87-year-old female. She presented to the emergency room with the complaints of cough and wheezing, shortness of breath. The symptoms started a few days ago, progressively getting worse. She received nebulizer treatment in the emergency room with some benefit. She was also found to be in atrial fibrillation with rapid ventricular rate. She denies any complaints of chest pain, nausea or vomiting. She reports that the symptoms have been worse. Cough is not getting better with the treatment. Cough is dry. Sometimes she is bringing up some phlegm. REVIEW OF SYSTEMS: GENERAL: Denies any fever, chills. HEAD: Denies any head trauma. ENT: Denies any earache. CVS: Denies any chest pain. RESPIRATORY: Shortness of breath. GI: Denies any nausea, vomiting. REST OF THE REVIEW OF SYSTEMS: Negative except as in history of present illness. PAST MEDICAL HISTORY: Atrial fibrillation, hypertension, dementia, seizure disorder. PAST SURGICAL HISTORY: Hysterectomy, left hip surgery. FAMILY AND SOCIAL HISTORY: She has never smoked. She does not drink. She lives in assisted living. ALLERGIES: PLEASE SEE THE CHART. PHYSICAL EXAMINATION: VITALS: Temperature 98.6, pulse of 106, blood pressure 118/83, respiratory rate of 18. O2 sat 94% on 2 liters. HEENT: Head atraumatic, normocephalic. CHEST: Wheezing bilaterally. HEART: S1 and S2 audible. ABDOMEN: Soft, nontender and nondistended. EXTREMITIES: No clubbing, cyanosis. Patient has 1 to 2+ pedal edema. NEUROLOGIC: Awake and alert. Following commands. Responding to questions appropriately. LABORATORY DATA: White count of 8.63, hemoglobin 10.7, platelets 208. CHEMISTRY: Sodium 121, potassium 4.3, BUN 21.68. INR 0.96. White count of 8.6, hemoglobin 10.7, platelets 208. COMPUTED TOMOGRAPHY: I have reviewed the images, not showing any significant finding except some scarring and maybe evidence of bronchitis with thickening of the bronchial garsia but no significant finding. ASSESSMENT: Ms. Aguirre is an 87-year-old female. She is a lifelong nonsmoker. Came in with worsening cough and wheezing. Likely has reactive airways and bronchitis. She also has history of atrial fibrillation, also has some pedal edema. CURRENT PROBLEMS: 1. Reactive airways. Likely due to bronchitis. 2. Cough. Patient is not on any DERECK inhibitors. 3. History of hypertension. PLAN: Continue the patient on nebulizer treatment. I will add Pulmicort nebs. Patient is already on IV steroids, which will be continued. Symptomatic treatment for cough. I will also start her on Mucomyst for symptomatic relief. Patient has pedal edema. Possibility of fluid overload. Will consider giving her a dose of Lasix. Thank you for this consult. I will continue to follow along with you. Job#: [id number] EV
[2018-05-17] MEDS: BUDESONIDE 0.5MG/2 ML NEB INH SCH (19:00)
[2018-05-18] VITALS (8 sets, daily range): BP systolic 119–152; BP diastolic 57–89
[2018-05-18] MEDS: ACETYLCYSTEINE 20% INHAL SOLN 30 ML VIAL INH SCH
[2018-05-18] MEDS: LEVALBUTEROL HCL SOLN NEBU 1.25 MG/3 ML NEB INH SCH ×4 (01:35→22:10)
[2018-05-18] MEDS: IPRATROPIUM BROMIDE 0.02% 2.5 ML NEB NEB SCH ×4 (01:35→22:10)
[2018-05-18] MEDS: FLECAINIDE ACETATE 100 MG TAB PO SCH ×2 (01:40→14:15)
[2018-05-18 05:50] LABS: BASOPHILS % 0.2 % (0.0-1.0); EOSINOPHILS % 0.2 % (0.0-6.0); HEMATOCRIT 31.4 % (34.2-44.1); HEMOGLOBIN 10.7 g/dL (12.0-16.0); LYMPHOCYTES # (AUTO) 0.9 (1.0-3.2); MEAN CORPUSCULAR HEMOGLOBIN 32.7 pg (28-32); MEAN CORPUSCULAR HGB CONC 34.1 g/dL (31-35); MONOCYTES # (AUTO) 0.6 (0.2-0.8); MONOCYTES % 9.8 % (4.4-11.3); NEUTROPHILS # (AUTO) 4.8 (2.1-6.9); NEUTROPHILS % 75.2 % (38.7-80.0); PLATELET COUNT 210 x10e3/uL (140-360); RED BLOOD COUNT 3.27 x10e6/uL (3.6-5.1); RED CELL DISTRIBUTION WIDTH 14.7 % (11.7-14.4)
[2018-05-18 06:13] LABS: ANION GAP 9.7 mmol/L (8-16); BLOOD UREA NITROGEN 23 mg/dL (7-26); BUN/CREATININE RATIO 35 (6-25); CALCIUM 8.5 mg/dL (8.4-10.2); CARBON DIOXIDE 24 mmol/L (22-29); CHLORIDE 94 mmol/L (98-107); CREATININE, SERUM 0.65 mg/dL (0.57-1.11); EST GLOMERULAR FILTRATION RATE > 60 ML/MIN (60-); GLUCOSE 103 mg/dL (74-118); POTASSIUM 4.7 mmol/L (3.5-5.1); SODIUM 123 mmol/L (136-145)
[2018-05-18] MEDS: METHYLPREDNISOLONE SOD SUCC 40 MG/ML VIAL IV SCH ×3 (06:31→21:39)
[2018-05-18] MEDS: AZTREONAM 1 GM/NS 50 ML 50 ML IV SCH ×3 (06:31→21:39)
[2018-05-18] MEDS ORDERED: FUROSEMIDE INJ 10 MG/ML 2 ML VIAL IV ONE (07:00)
[2018-05-18] MEDS: ACETYLCYSTEINE 200 MG/ML 4ML VIAL INH SCH ×3 (07:00→22:10)
[2018-05-18] MEDS: BUDESONIDE 0.5MG/2 ML NEB INH SCH ×2 (07:27→22:10)
[2018-05-18] MEDS: METOPROLOL TARTRATE 50 MG TAB PO SCH ×2 (09:38→17:20)
[2018-05-18] MEDS: OCUVITE PRESERVISION TABLET PO SCH ×2 (09:38→17:20)
[2018-05-18] MEDS: PHENYTOIN SODIUM EXT REL 100 MG CAP PO SCH (09:38)
[2018-05-18] MEDS: GUAIFENESIN 600 MG TAB PO SCH ×2 (09:38→17:20)
[2018-05-18] MEDS: OLMESARTAN 20 MG TAB PO SCH (09:38)
[2018-05-18] MEDS: BENZONATATE 100 MG CAP PO PRN (09:38)
[2018-05-18] MEDS: DOXYCYCLINE HYCLATE TABLET 100 MG TAB PO SCH ×2 (09:38→17:20)
[2018-05-18] MEDS: POTASSIUM CHLORIDE 10MEQ EA PO SCH ×2 (09:38→17:20)
[2018-05-18] MEDS: LORATADINE 10 MG TAB PO SCH (09:38)
[2018-05-18] MEDS: GUAIFENESIN/CODEINE 10 ML CUP PO PRN (12:46)
[2018-05-18] MEDS: RIVAROXABAN 15 MG TABLET PO SCH (17:20)
[2018-05-19] VITALS (7 sets, daily range): BP systolic 108–142; BP diastolic 62–85
[2018-05-19] MEDS: FLECAINIDE ACETATE 100 MG TAB PO SCH ×2 (00:58→13:59)
[2018-05-19] MEDS: ACETAMINOPHEN 325 MG TAB PO PRN (00:58)
[2018-05-19] MEDS: LEVALBUTEROL HCL SOLN NEBU 1.25 MG/3 ML NEB INH SCH ×4 (02:20→20:15)
[2018-05-19] MEDS: IPRATROPIUM BROMIDE 0.02% 2.5 ML NEB NEB SCH ×4 (02:20→20:15)
[2018-05-19] MEDS: ACETYLCYSTEINE 200 MG/ML 4ML VIAL INH SCH ×3 (02:20→13:44)
[2018-05-19] MEDS: METHYLPREDNISOLONE SOD SUCC 40 MG/ML VIAL IV SCH ×3 (05:44→21:45)
[2018-05-19] MEDS: AZTREONAM 1 GM/NS 50 ML 50 ML IV SCH ×3 (05:44→22:13)
[2018-05-19 06:08] LABS: EOSINOPHILS % 0.1 % (0.0-6.0); HEMATOCRIT 32.3 % (34.2-44.1); HEMOGLOBIN 11.3 g/dL (12.0-16.0); LYMPHOCYTES # (AUTO) 1.1 (1.0-3.2); LYMPHOCYTES % 14.6 % (18.0-39.1); MEAN CORPUSCULAR HEMOGLOBIN 33.2 pg (28-32); MONOCYTES # (AUTO) 0.6 (0.2-0.8); MONOCYTES % 8.5 % (4.4-11.3); NEUTROPHILS # (AUTO) 5.5 (2.1-6.9); NEUTROPHILS % 76.4 % (38.7-80.0); PLATELET COUNT 259 x10e3/uL (140-360); RED CELL DISTRIBUTION WIDTH 14.6 % (11.7-14.4)
[2018-05-19 06:26] LABS: ANION GAP 10.8 mmol/L (8-16); BLOOD UREA NITROGEN 29 mg/dL (7-26); BUN/CREATININE RATIO 41 (6-25); CALCIUM 8.5 mg/dL (8.4-10.2); CARBON DIOXIDE 23 mmol/L (22-29); CHLORIDE 96 mmol/L (98-107); EST GLOMERULAR FILTRATION RATE > 60 ML/MIN (60-); GLUCOSE 104 mg/dL (74-118); POTASSIUM 4.8 mmol/L (3.5-5.1); SODIUM 125 mmol/L (136-145)
[2018-05-19] MEDS: BUDESONIDE 0.5MG/2 ML NEB INH SCH ×2 (07:52→20:15)
[2018-05-19] MEDS: OCUVITE PRESERVISION TABLET PO SCH ×2 (08:51→17:58)
[2018-05-19] MEDS: LORATADINE 10 MG TAB PO SCH (08:51)
[2018-05-19] MEDS: GUAIFENESIN 600 MG TAB PO SCH ×2 (08:51→17:58)
[2018-05-19] MEDS: PHENYTOIN SODIUM EXT REL 100 MG CAP PO SCH (08:51)
[2018-05-19] MEDS: METOPROLOL TARTRATE 50 MG TAB PO SCH ×2 (08:51→17:58)
[2018-05-19] MEDS: OLMESARTAN 20 MG TAB PO SCH (08:51)
[2018-05-19] MEDS: POTASSIUM CHLORIDE 10MEQ EA PO SCH ×2 (08:51→17:58)
[2018-05-19] MEDS: DOXYCYCLINE HYCLATE TABLET 100 MG TAB PO SCH ×2 (08:52→17:58)
[2018-05-19] MEDS: RIVAROXABAN 15 MG TABLET PO SCH (17:58)
[2018-05-20 00:50] VITALS: BP 146/78
[2018-05-20] MEDS: IPRATROPIUM BROMIDE 0.02% 2.5 ML NEB NEB SCH ×2 (01:00→08:20)
[2018-05-20] MEDS: LEVALBUTEROL HCL SOLN NEBU 1.25 MG/3 ML NEB INH SCH ×2 (01:00→08:20)
[2018-05-20] MEDS: FLECAINIDE ACETATE 100 MG TAB PO SCH (02:01)
[2018-05-20 04:00] VITALS: BP 134/73
[2018-05-20] MEDS: AZTREONAM 1 GM/NS 50 ML 50 ML IV SCH (05:26)
[2018-05-20 08:18] VITALS: BP 121/76
[2018-05-20] MEDS: BUDESONIDE 0.5MG/2 ML NEB INH SCH (08:20)
[2018-05-20] MEDS: METHYLPREDNISOLONE SOD SUCC 40 MG/ML VIAL IV SCH (08:33)
[2018-05-20] MEDS: OLMESARTAN 20 MG TAB PO SCH (09:02)
[2018-05-20] MEDS: METOPROLOL TARTRATE 50 MG TAB PO SCH (09:02)
[2018-05-20] MEDS: LORATADINE 10 MG TAB PO SCH (09:02)
[2018-05-20] MEDS: GUAIFENESIN 600 MG TAB PO SCH (09:02)
[2018-05-20] MEDS: OCUVITE PRESERVISION TABLET PO SCH (09:02)
[2018-05-20] MEDS: POTASSIUM CHLORIDE 10MEQ EA PO SCH (09:02)
[2018-05-20] MEDS: PHENYTOIN SODIUM EXT REL 100 MG CAP PO SCH (09:02)
[2018-05-20] MEDS: DOXYCYCLINE HYCLATE TABLET 100 MG TAB PO SCH (09:02)
[2018-05-20] MEDS ORDERED: TRIAMCINOLONE ACET 40 MG/ML VIAL IM NR (09:30)
[2018-05-20 09:33] VITALS: BP 121/76
--- NOTE | 2018-05-21 04:16 | Discharge Summary ---
PRIMARY CARE PHYSICIAN: Dr. Lashawn Pak. ATTENDING PHYSICIAN: Dr. Connor Rowan. SALES MARKETING: Dr. Dean Irvin. FINAL DIAGNOSES 1. Acute exacerbation of chronic obstructive pulmonary disease associated with acute hypoxia. 2. Reactive airway disease secondary to the above. 3. Baseline atrial fibrillation, on anticoagulant therapy. 4. Baseline medical debility, progressive. 5. Multiple medical problems. SUMMARY: An 87-year-old female who came in with hypoxia, shortness of breath, and upper respiratory infection. Patient has acute bronchitis with acute exacerbation of COPD. She was having wheezing. The patient was stable with medication treatment, although she is improving a little bit slow. The patient is stable. She did have urinary tract infection as well. Antibiotics, steroids, and nebulizer treatment was given as well. The patient is stable now. She is comfortable. She is off oxygen. She has normal vital signs; pulse rate of 93, blood pressure 121/76, and temperature is 97. LABORATORY: Sodium is 125, potassium 4.8, chloride 86, bicarb 23, BUN 25, and creatinine 0.7. Glucose 104. She does have chronic hyponatremia. WBC 7.3, hemoglobin 11.3, hematocrit 32.3, and platelets 259. Patient is stable, discharged home. Resume home medication. Fluid restriction. Patient will need to follow up with Dr. Julien Pak, her primary care physician in approximately 1 week. She will follow up with Dr. Dean Irvin within 1 week for continue to manage as an outpatient. DISCHARGE MEDICATIONS 1. Nebulizer. 2. Prednisone 10 mg daily. She will take prednisone for 10 days. 3. Xopenex 1.25 mg neb q.4 hours as needed for shortness of breath. 4. Atrovent neb q.6 hours p.r.n. as well. DISPOSITION: Patient is stable, discharged home today. Job#: [id number] JULIA
== END 2018-05-20 11:11 | disposition home or self-care (01) | DRG 202 ==
LOC: ER 12:36 → ERHOLD 17:09 → IMCU 20:35 → OBSVTOIN 05-14 11:15 → MED/SURG 05-17 21:07
PROVIDERS: ADMIT Internal Medicine; ATTEND Internal Medicine
DX: J20.9 Acute bronchitis, unspecified (principal); J44.0 Chronic obstructive pulmonary disease with (acute) lower respiratory infection; N39.0 Urinary tract infection, site not specified; J44.1 Chronic obstructive pulmonary disease with (acute) exacerbation; E87.1 Hypo-osmolality and hyponatremia; Z83.3 Family history of diabetes mellitus; Z82.49 Family history of ischemic heart disease and other diseases of the circulatory system; I48.91 Unspecified atrial fibrillation; Z88.0 Allergy status to penicillin; Z91.013 Allergy to seafood; Z88.8 Allergy status to other drugs, medicaments and biological substances; Z91.048 Other nonmedicinal substance allergy status; I10 Essential (primary) hypertension; I48.2 Chronic atrial fibrillation; Z79.01 Long term (current) use of anticoagulants; R09.02 Hypoxemia; R53.81 Other malaise
CPT/HCPCS: 36415; 71045; 71046; 71250; 80048; 80053; 81001; 82550; 82553; 83880; 84484; 85025; 85610; 85730; 93005; 94640; 96367; 96376; 99284; G0378; J1940; J2920; J3301; J7030